=== PATIENT | female | born 1930 | race Caucasian/White ===

== ENCOUNTER 2016-10-06 21:49 | Emergency (ER) | payer OTHER ==
[~2016-10-06] VITALS: Ht 149.9 cm; Wt 62.0 kg
[~2016-10-06 21:49] MED LIST: ADULT LOW DOSE81 M1 PO; ADVAIR 250/501 DISK IH; ALENDRONATE SOD70 MG PO; ALPHAGAN P10 ML BOTH EYES; ASPIR-TRIN325 M1 PO; ASPIRIN325 MG PO; ATACAND16 MG PO; BENADRYL25 MG PO; BONIVA150 MG PO; CALCIUM CARBON600 M1 PO; CO Q-1010 MG PO; COMBIGAN O20 DROP/5 BOTH EYES; COQ-10100 MG PO; CRESTOR10 MG PO; CRESTOR5 MG PO; DEXILANT60 MG PO; FUROSEMIDE20 MG PO; LEVOTHROID50 MCG PO; LUMIGAN 0.50 DROP/2. BOTH EYES; MAALOX PLUS1 TABLET PO; NITROGLYCERIN0.4 MG SL; OMEGA 3 1,0001 EACH PO; OMEGA 3-6-91200 MG PO; PLAVIX75 MG PO; PROBIOTICS PO; PROTONIX40 MG PO; Preservision AREDS S PO; RESTASIS 01 DROP/0.4 BOTH EYES; SYNTHROID50 MCG PO; THERAGRAN1 TABLET PO; VITAMIN B12-FO1 EACH PO; ZANTAC300 MG PO
[2016-10-06 23:59] VITALS: BP 152/63
== END 2016-10-07 00:02 | disposition home or self-care (01) ==
LOC: EME 21:49 → RME 21:49
DX: S80.812A Abrasion, left lower leg, initial encounter (principal); I10 Essential (primary) hypertension; E78.5 Hyperlipidemia, unspecified; I25.10 Atherosclerotic heart disease of native coronary artery without angina pectoris; Z79.82 Long term (current) use of aspirin; Z95.5 Presence of coronary angioplasty implant and graft; X50.9XXA Other and unspecified overexertion or strenuous movements or postures, initial encounter
CPT/HCPCS: 73590; 99281; 99284

== ENCOUNTER 2017-01-22 21:43 | Emergency (ER) | payer OTHER ==
[~2017-01-22] VITALS: Ht 149.9 cm; Wt 60.0 kg
[2017-01-22 23:07] LABS: HEMATOCRIT 39.2 % (36.0-46.0); MCHC 32.7 G/DL (30.0-36.0); MCV 88.9 FL (83-99); MEAN PLAT.VOLUME 10.2 uM^3 (9.5-12.4); PLATELET COUNT 301 K/uL (156-360); RBC DIS.WIDTH-CV 13.3 % (11.8-14.6); RBC DIS.WIDTH-SD 43.8 % (39-53); RED BLOOD COUNT 4.41 M/uL (3.80-5.20); WHITE BLOOD COUNT 7.4 K/uL (4.1-10.2)
[2017-01-22 23:16] LABS: CHLORIDE 104 mEq/L (99-109); POTASSIUM 3.4 mEq/L (3.7-5.4); SODIUM 139 mEq/L (136-147)
[2017-01-22 23:17] LABS: GLUCOSE 103 mg/dL (70-99)
[2017-01-22 23:19] LABS: ANION GAP 11 MEQ/L (2-14)
[2017-01-22 23:20] LABS: PROTHROMBIN TIME 10.5 (9.2-11.2)
[2017-01-22 23:21] LABS: GFR ESTIMATE (CALCULATED) 50 mL/min/
[2017-01-22 23:22] LABS: UREA NITROGEN (BUN) 22 mg/dL (9-23)
[2017-01-22 23:37] LABS: PTT 17.7 (25-32)
[2017-01-23] MEDS ORDERED: KEFLEX500 MG PO (00:45)
[2017-01-23] MEDS ORDERED: BACTRIM,SEPT1 TABLET PO (00:45)
[2017-01-23 00:59] VITALS: BP 173/65
== END 2017-01-23 01:08 | disposition home or self-care (01) ==
LOC: EME 21:43
PROVIDERS: Emergency Medicine
DX: L03.115 Cellulitis of right lower limb (principal); M79.661 Pain in right lower leg; G89.29 Other chronic pain; E78.5 Hyperlipidemia, unspecified; I10 Essential (primary) hypertension; K21.9 Gastro-esophageal reflux disease without esophagitis; I25.10 Atherosclerotic heart disease of native coronary artery without angina pectoris; Z95.5 Presence of coronary angioplasty implant and graft; I73.9 Peripheral vascular disease, unspecified; Z95.820 Peripheral vascular angioplasty status with implants and grafts
CPT/HCPCS: 80048; 83605; 85027; 85610; 85730; 87040; 93971; 99281; 99285

== ENCOUNTER 2017-03-04 15:56 | Observation (INO) | payer OTHER ==
[~2017-03-04] VITALS: Ht 149.9 cm; Wt 57.7 kg
[~2017-03-04 15:56] MED LIST changes: +BACTRIM,SEPT1 TABLET PO; +KEFLEX500 MG PO
[2017-03-04 16:36] LABS: HEMATOCRIT 40.2 % (36.0-46.0); MCH 29.5 PG (29.0-34.0); MCHC 32.8 G/DL (30.0-36.0); MCV 89.9 FL (83-99); MEAN PLAT.VOLUME 9.5 uM^3 (9.5-12.4); PLATELET COUNT 302 K/uL (156-360); RBC DIS.WIDTH-CV 13.2 % (11.8-14.6); RBC DIS.WIDTH-SD 43.6 % (39-53); RED BLOOD COUNT 4.47 M/uL (3.80-5.20); WHITE BLOOD COUNT 7.3 K/uL (4.1-10.2)
[2017-03-04 16:45] LABS: CHLORIDE 101 mEq/L (99-109); POTASSIUM 4.1 mEq/L (3.7-5.4); SODIUM 140 mEq/L (136-147)
[2017-03-04 16:46] LABS: GLUCOSE 87 mg/dL (70-99)
[2017-03-04 16:48] LABS: ANION GAP 13 MEQ/L (2-14)
[2017-03-04 16:50] LABS: GFR ESTIMATE (CALCULATED) 56 mL/min/
[2017-03-04 16:51] LABS: UREA NITROGEN (BUN) 23 mg/dL (9-23)
[2017-03-04 16:56] LABS: TROP-I INTERPRETATION NEGATIVE; TROPONIN-I < 0.01 ng/mL (0.0-0.30)
[2017-03-04] MEDS ORDERED: OMEGA 3 500 SO1 EACH PO (18:36)
[2017-03-04] MEDS ORDERED: LINZESS72 MCG PO (18:37)
[2017-03-04] MEDS ORDERED: CYANOCOBALAM1000 MCG PO (18:37)
[2017-03-04] MEDS ORDERED: MIRALAX255 GM PO (18:38)
[2017-03-04] MEDS ORDERED: PROTONIX40 MG PO (18:38)
[2017-03-04 20:58] VITALS: BP 185/80
[2017-03-04 23:47] LABS: TROP-I INTERPRETATION NEGATIVE; TROPONIN-I < 0.01 ng/mL (0.0-0.30)
[2017-03-05 00:30] VITALS: BP 167/72
[2017-03-05 03:57] VITALS: BP 123/56
[2017-03-05 07:16] LABS: TROP-I INTERPRETATION NEGATIVE; TROPONIN-I < 0.01 ng/mL (0.0-0.30)
[2017-03-05 07:18] LABS: HDL CHOLESTEROL 84 MG/DL (Desirable>=50); LDL CHOLESTEROL 108 mg/dL (Desirable<100); NON-HDL CHOLESTEROL 123 mg/dL (Desirable<160); TOTAL CHOLESTEROL 207 mg/dL (Desirable<200); TRIGLYCERIDES 76 MG/DL (Normal: <150)
[2017-03-05 08:25] VITALS: BP 129/61
[2017-03-05 11:47] VITALS: BP 117/58
== END 2017-03-05 11:56 | disposition home or self-care (01) ==
LOC: EME 15:56 → EDOF 20:00 → 5WEST 20:00 → EDOF 20:00 → 5WEST 20:47
PROVIDERS: Physician Assistant Medical
DX: R07.89 Other chest pain (principal); I12.9 Hypertensive chronic kidney disease with stage 1 through stage 4 chronic kidney disease, or unspecified chronic kidney disease; N18.3 Chronic kidney disease, stage 3 (moderate); E78.5 Hyperlipidemia, unspecified; K21.9 Gastro-esophageal reflux disease without esophagitis; K59.00 Constipation, unspecified; I25.10 Atherosclerotic heart disease of native coronary artery without angina pectoris; Z95.5 Presence of coronary angioplasty implant and graft; E03.9 Hypothyroidism, unspecified; I73.9 Peripheral vascular disease, unspecified; H35.30 Unspecified macular degeneration; H40.9 Unspecified glaucoma; K44.9 Diaphragmatic hernia without obstruction or gangrene
CPT/HCPCS: 71020; 74000; 80048; 80061; 84484; 85027; 93005; 94640; 94640 76; 99281; 99285; G0378; J0360; J1644

== ENCOUNTER → 2017-08-17 | Outpatient (CLI) | payer OTHER ==
[~2017-08-17] MED LIST changes: -COMBIGAN O20 DROP/5 BOTH EYES; +COMBIGAN O20 DROP/5 LEFT EYE; +CYANOCOBALAM1000 MCG PO; +LINZESS72 MCG PO; +MIRALAX255 GM PO; +OMEGA 3 500 SO1 EACH PO; +ONCE DAILY1 EACH PO; +RESVERATROL50 MG PO; +SUCRALFATE1 GM PO; +Tums,OsCal PO; +ULTRAM50 MG PO
== END | disposition home or self-care (01) ==
LOC: CDC 11:47
DX: Z01.810 Encounter for preprocedural cardiovascular examination (principal); R94.31 Abnormal electrocardiogram [ECG] [EKG]
CPT/HCPCS: 93000

== ENCOUNTER 2017-08-18 18:45 | Observation (INO) | payer OTHER ==
[~2017-08-18] VITALS: Ht 152.4 cm; Wt 58.6 kg
[~2017-08-18 18:45] MED LIST changes: -ONCE DAILY1 EACH PO; -RESVERATROL50 MG PO; -SUCRALFATE1 GM PO; -Tums,OsCal PO; -ULTRAM50 MG PO
[2017-08-18 19:13] LABS: MCHC 32.6 G/DL (30.0-36.0); MCV 88.8 FL (83-99); MEAN PLAT.VOLUME 9.4 uM^3 (9.5-12.4); PLATELET COUNT 316 K/uL (156-360); RBC DIS.WIDTH-CV 14.8 % (11.8-14.6); RBC DIS.WIDTH-SD 48.6 % (39-53); RED BLOOD COUNT 4.28 M/uL (3.80-5.20); WHITE BLOOD COUNT 7.4 K/uL (4.1-10.2)
[2017-08-18 19:27] LABS: CHLORIDE 101 mEq/L (99-109); POTASSIUM 4.2 mEq/L (3.7-5.4); SODIUM 138 mEq/L (136-147)
[2017-08-18 19:28] LABS: GLUCOSE 102 mg/dL (70-99)
[2017-08-18 19:30] LABS: ANION GAP 11 MEQ/L (2-14)
[2017-08-18 19:32] LABS: GFR ESTIMATE (CALCULATED) 56 mL/min/
[2017-08-18 19:33] LABS: UREA NITROGEN (BUN) 35 mg/dL (9-23)
[2017-08-18 19:35] LABS: TROP-I INTERPRETATION NEGATIVE; TROPONIN-I 0.02 ng/mL (0.0-0.30)
[2017-08-18] MEDS ORDERED: RESVERATROL50 MG PO (22:45)
[2017-08-18] MEDS ORDERED: ULTRAM50 MG PO (22:45)
[2017-08-18] MEDS ORDERED: ONCE DAILY1 EACH PO (22:46)
[2017-08-18 23:00] VITALS: BP 146/65
[2017-08-19 01:27] LABS: TROP-I INTERPRETATION NEGATIVE; TROPONIN-I < 0.01 ng/mL (0.0-0.30)
[2017-08-19 04:00] VITALS: BP 146/64
[2017-08-19 07:17] LABS: TROP-I INTERPRETATION NEGATIVE; TROPONIN-I 0.01 ng/mL (0.0-0.30)
[2017-08-19 07:23] LABS: HDL CHOLESTEROL 64 MG/DL (Desirable>=50); LDL CHOLESTEROL 94 mg/dL (Desirable<100); NON-HDL CHOLESTEROL 110 mg/dL (Desirable<160); TOTAL CHOLESTEROL 174 mg/dL (Desirable<200); TRIGLYCERIDES 80 MG/DL (Normal: <150)
[2017-08-19 09:25] VITALS: BP 145/65
[2017-08-19 11:23] VITALS: BP 117/54
[2017-08-19 15:12] VITALS: BP 85/48
[2017-08-19 16:17] VITALS: BP 116/55
[2017-08-19] MEDS ORDERED: SUCRALFATE1 GM PO (17:01)
[2017-08-19] MEDS ORDERED: Tums,OsCal PO (17:03)
== END 2017-08-19 19:16 | disposition home or self-care (01) ==
LOC: EME 18:45 → EDOF 22:02 → 5WEST 22:02 → ENRESERV 22:03 → 5WEST 22:46
PROVIDERS: Physician Assistant Medical
DX: R07.9 Chest pain, unspecified (principal); K21.9 Gastro-esophageal reflux disease without esophagitis; K59.09 Other constipation; K22.4 Dyskinesia of esophagus; I25.10 Atherosclerotic heart disease of native coronary artery without angina pectoris; Z95.5 Presence of coronary angioplasty implant and graft; E78.5 Hyperlipidemia, unspecified; I10 Essential (primary) hypertension; I73.9 Peripheral vascular disease, unspecified; E03.9 Hypothyroidism, unspecified; H35.30 Unspecified macular degeneration; M81.0 Age-related osteoporosis without current pathological fracture; Z95.820 Peripheral vascular angioplasty status with implants and grafts; Z79.82 Long term (current) use of aspirin; S22.009D Unspecified fracture of unspecified thoracic vertebra, subsequent encounter for fracture with routine healing; K44.9 Diaphragmatic hernia without obstruction or gangrene; Z91.81 History of falling; H40.9 Unspecified glaucoma; Z60.2 Problems related to living alone; Z90.49 Acquired absence of other specified parts of digestive tract
CPT/HCPCS: 71020; 80048; 80061; 84484; 85027; 93005; 99281; 99285; C9113; G0378; J1644

== ENCOUNTER 2018-03-16 17:20 | Emergency (ER) | payer OTHER ==
[~2018-03-16] VITALS: Ht 152.4 cm; Wt 52.7 kg
[~2018-03-16 17:20] MED LIST changes: +ONCE DAILY1 EACH PO; +RESVERATROL50 MG PO; +SUCRALFATE1 GM PO; +Tums,OsCal PO; +ULTRAM50 MG PO
[2018-03-16 18:50] VITALS: BP 152/66
== END 2018-03-16 19:07 | disposition home or self-care (01) ==
LOC: EME 17:20
DX: S80.12XA Contusion of left lower leg, initial encounter (principal); W54.1XXA Struck by dog, initial encounter; I73.9 Peripheral vascular disease, unspecified; I10 Essential (primary) hypertension; E78.5 Hyperlipidemia, unspecified; H40.9 Unspecified glaucoma; H35.30 Unspecified macular degeneration; Z79.82 Long term (current) use of aspirin; Z87.891 Personal history of nicotine dependence; Z95.9 Presence of cardiac and vascular implant and graft, unspecified
CPT/HCPCS: 73590; 99281; 99284